=== PATIENT | female | born 1950 | race Caucasian/White ===

== ENCOUNTER 2016-11-17 12:54 | Day surgery (SDC) | payer OTHER, BC ==
[~2016-11-17] VITALS: Ht 160 cm; Wt 90.7 kg
[~2016-11-17 12:54] MED LIST: ESTROVEN 155 M155 MG PO; FLONASE16 G1 BOTH NARES; IBUPROFEN600 MG PO; LISINOPRIL-HCT1 EACH PO; LORTAB 5-325 M1 EACH PO; MEGARED OMEGA-1 EAC2 PO; NEURONTIN100 MG PO; NEURONTIN300 MG PO; PRILOSEC20 MG PO; SINGULAIR10 MG PO; SYMBICORT60 INHALAT IH; TRAMADOL HCL50 MG PO; TYLENOL EXTRA500 MG PO; ULTRAM50 MG PO; VENTOLIN HFA18 GM IH; ZYRTEC10 M3 PO
== END 2016-11-17 15:30 | disposition home or self-care (01) ==
LOC: PAIN 12:54 → SDC 14:45 → PAIN 15:30
DX: M47.26 Other spondylosis with radiculopathy, lumbar region (principal); M51.16 Intervertebral disc disorders with radiculopathy, lumbar region; I10 Essential (primary) hypertension; J45.909 Unspecified asthma, uncomplicated; K21.9 Gastro-esophageal reflux disease without esophagitis; Z79.891 Long term (current) use of opiate analgesic
CPT/HCPCS: J1100; J2250; J3010

== ENCOUNTER 2016-12-13 08:25 | Day surgery (SDC) | payer OTHER, BC ==
[~2016-12-13] VITALS: Ht 160 cm; Wt 90.7 kg
== END 2016-12-13 10:56 | disposition home or self-care (01) ==
LOC: PAIN 08:25 → SDC 09:00 → PAIN 09:00
DX: M47.26 Other spondylosis with radiculopathy, lumbar region (principal); M51.16 Intervertebral disc disorders with radiculopathy, lumbar region; M43.16 Spondylolisthesis, lumbar region; I10 Essential (primary) hypertension; J45.909 Unspecified asthma, uncomplicated; K21.9 Gastro-esophageal reflux disease without esophagitis; E78.5 Hyperlipidemia, unspecified; Z79.891 Long term (current) use of opiate analgesic
CPT/HCPCS: J1100; J2250; J3010

== ENCOUNTER 2017-03-06 08:36 | Day surgery (SDC) | payer OTHER, BC ==
[~2017-03-06] VITALS: Ht 160 cm; Wt 90.7 kg
== END 2017-03-06 10:20 | disposition home or self-care (01) ==
LOC: PAIN 08:36 → SDC 09:00 → PAIN 10:20
DX: M51.16 Intervertebral disc disorders with radiculopathy, lumbar region (principal); M47.26 Other spondylosis with radiculopathy, lumbar region; M48.061 Spinal stenosis, lumbar region without neurogenic claudication; M43.16 Spondylolisthesis, lumbar region; I10 Essential (primary) hypertension; K21.9 Gastro-esophageal reflux disease without esophagitis; E78.5 Hyperlipidemia, unspecified
CPT/HCPCS: J1100; J2250; J3010

== ENCOUNTER 2017-10-23 09:12 | Day surgery (SDC) | payer OTHER ==
[~2017-10-23] VITALS: Ht 160 cm; Wt 90.7 kg
[~2017-10-23 09:12] MED LIST changes: +TURMERIC500 MG PO
== END 2017-10-23 11:15 | disposition home or self-care (01) ==
LOC: PAIN 09:12 → SDC 09:45 → PAIN 09:45
PROC: BR161ZZ Fluoroscopy of Lumbar Facet Joint(s) using Low Osmolar Contrast (ICD-10-PCS; principal; 2017-10-23)
PROC: 3E0S33Z Introduction of Anti-inflammatory into Epidural Space, Percutaneous Approach (ICD-10-PCS; principal; 2017-10-23)
DX: M54.16 Radiculopathy, lumbar region (principal); M51.26 Other intervertebral disc displacement, lumbar region; M43.10 Spondylolisthesis, site unspecified; Z88.5 Allergy status to narcotic agent
CPT/HCPCS: J1100; J2250; J3010

== ENCOUNTER 2017-11-21 07:20 | Day surgery (SDC) | payer OTHER ==
[~2017-11-21] VITALS: Ht 160 cm; Wt 90.7 kg
== END 2017-11-21 09:10 | disposition home or self-care (01) ==
LOC: PAIN 07:20 → SDC 08:00 → PAIN 08:00
DX: M51.16 Intervertebral disc disorders with radiculopathy, lumbar region (principal); M47.816 Spondylosis without myelopathy or radiculopathy, lumbar region; M43.16 Spondylolisthesis, lumbar region; I10 Essential (primary) hypertension; J45.909 Unspecified asthma, uncomplicated; K21.9 Gastro-esophageal reflux disease without esophagitis; E78.5 Hyperlipidemia, unspecified; Z79.891 Long term (current) use of opiate analgesic; Z88.5 Allergy status to narcotic agent
CPT/HCPCS: J1100; J2250; J3010